=== PATIENT | female | born 1990 | race Caucasian/White ===

== ENCOUNTER 2019-07-06 21:41 | Emergency (ER) | payer BC, MEDICAID, OTHER ==
[~2019-07-06] VITALS: Ht 162.6 cm; Wt 93.0 kg
[2019-07-06 21:49] VITALS: BP_SYST 111
--- NOTE | 2019-07-06 22:15 | NUR ---
Pt to bed 3, side rails up. Reposrt given to Andrew MILLS
--- NOTE | 2019-07-06 22:20 | NUR ---
Pt came in with a complaint of chest pain, denies shortness of breath and fever. No medical history noted. VSS tolerating room air. No other complaint noted. NKA. Safety precaution observed, will continue to monitor Pt.
--- NOTE | 2019-07-06 22:30 | NUR ---
ER MD Hazel at bedside for medical evaluation
[2019-07-06] MEDS ORDERED: PANTOPRAZOLE SODIUM 40 MG TAB PO ONE (22:45)
[2019-07-06] MEDS ORDERED: IBUPROFEN 800 MG TABLET PO ONE (22:45)
[2019-07-06 23:30] VITALS: BP_SYST 120
--- NOTE | 2019-07-06 23:30 | NUR ---
Patient given written and verbal discharge instructions and verbalizes understanding. ER MD Hazel discussed with patient the results and treatment provided. Patient in stable condition. ID arm band removed. Patient educated on pain management and to follow up with PMD. Pain Scale 0/10. Opportunity for questions provided and answered. Medication side effect fact sheet provided.
== END 2019-07-06 23:30 | disposition home or self-care (01) ==
LOC: SED 21:41
DX: R07.89 Other chest pain (principal); K29.70 Gastritis, unspecified, without bleeding
CPT/HCPCS: 71045; 93005; 99283